=== PATIENT | female | born 2000 | race Caucasian/White ===

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

== ENCOUNTER 2019-01-12 19:41 | Emergency (ER) ==
[2019-01-12 19:46] VITALS: BP 149/94; TEMP 98.2; BMI 45.5
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
== END 2019-01-12 20:26 | disposition home or self-care (01) ==
LOC: ED 19:41
DX: S16.1XXA Strain of muscle, fascia and tendon at neck level, initial encounter (principal); V89.2XXA Person injured in unspecified motor-vehicle accident, traffic, initial encounter
CPT/HCPCS: 99283

== ENCOUNTER 2019-01-27 10:37 | Outpatient (CLI) ==
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
== END 2019-01-27 10:38 | disposition home or self-care (01) ==
LOC: RAD 10:37
PROVIDERS: ATTEND Family Medicine
DX: M54.2 Cervicalgia (principal); M54.5 Low back pain; V89.2XXA Person injured in unspecified motor-vehicle accident, traffic, initial encounter